=== PATIENT | male | born 1975 | race Caucasian/White ===

== ENCOUNTER 2017-06-26 18:43 | Emergency (ER) | payer BC, OTHER ==
[~2017-06-26] VITALS: Ht 172.7 cm; Wt 78.7 kg
[2017-06-26 18:54] VITALS: BP 148/93; PULSE 72; TEMP 37; O2SAT 98; Ht 172.7 cm; Wt 78.7 kg
[2017-06-26] MEDS ORDERED: LIDOCAINE HCL 1% 20 ML VIAL ONE (19:05)
[2017-06-26] MEDS ORDERED: CEFAZOLIN SOD 1000MG/55 ML D5W IV STA (19:06)
[2017-06-26] MEDS ORDERED: DIPHTHERIA/TETANUS/PERTUSSIS 0.5 ML SYR/VIAL IM. ONE (19:15)
[2017-06-26] MEDS ORDERED: CEPHALEXIN 500MG HOME PACK 1 EA BTL PO ONE (20:00)
[2017-06-26] MEDS ORDERED: CEPH500C PO (20:24)
--- NOTE | 2017-06-26 20:26 | EMERGENCY ROOM VISIT NOTE ---
ED Visit Note First contact with patient: 18:57 Chief Complaint: Left third Finger Laceration History of Present Illness: This 42-year-old male presents to the Emergency Department by private vehicle with his for evaluation of their left third finger laceration that occurred at approximately 2 PM today. Patient sustained the laceration while working with a planer machine, caught the tip of his finger in the belt. They report a moderate amount of bleeding initially, which has slowed but has not completely stopped. They deny any numbness or tingling into the distal extremity. They report decreased range of motion of the affected digit, notably the patient is unable to straighten his finger. They have tried no medications for the pain. Patient rates current discomfort as a 2/ 10. Patient denies any other injuries. Patient's Tetanus status is not currently up-to-date. Medications: No current medications Allergies: No known allergies PMH: No significant past medical or surgical history. SHx: Lives at home with his . Denies tobacco use. ROS: All pertinent positive and negative review of systems are appropriately documented in the History of Present Illness. Physical Exam: VITAL SIGNS - Vital signs and nursing notes were reviewed. GENERAL - pleasant and cooperative, in no acute distress. Communicates well with provider and answers questions appropriately. SKIN - There is a 2 cm long laceration noted on the dorsal aspect of the distal left third finger, just over the DIP joint. The edges gape apart and the wound appears deep. No foreign bodies appreciated. Upon further examination there is a full laceration of the extensor tendon and bony structures are visible. There is minimal active bleeding noted. MUSCULOSKELETAL - Laceration as described above. Normal flexor strength the affected digit, patient is unable to fully extend the distal end of the finger. NEUROLOGIC - No sensory defects of the left third finger appreciated utilizing light touch for evaluation. VASCULAR - Capillary refill was brisk. ED Course: Patient was seen and evaluated by myself. X-ray of the left third finger was done and reviewed by myself and radiology, no acute fractures noted. Costs and benefits of performing primary wound closure versus no repair were discussed with the patient who verbalizes understanding. Verbal consent was obtained prior to performing the procedure. 3 cc of 1% buffered lidocaine was used to perform a digital block of the left third digit. A finger tourniquet was applied. The wound was cleansed and prepped in the typical sterile fashion utilizing normal saline and Betadine. The wound was sterilely draped. Once proper anesthetization was established, the wound was further examined and confirmed a complete extensor tendon laceration. The wound was copiously irrigated with normal saline and Betadine. The wound was loosely closed using 3 simple, 5-0 nylon sutures with the wound edges being loosely approximated. Hemostasis was achieved. Patient tolerated the procedure well. No complications were met. The wound was cleansed and dressed with a Bacitracin dressing. A metal splint was applied to the finger for comfort. Patient received their Boostrix vaccination. Patient educated on worrisome symptoms for return visit to the Emergency Department. The patient was instructed to follow closely with orthopedic hand surgery for repair of his lacerated tendon, he verbalized understanding. Patient discharged to home in good condition. The patient was discussed with Dr. Shelton, who agrees with my assessment and plan. Current/Historical Medications Scheduled Cephalexin Monohydrate (Keflex), 500 MG PO QID Allergies Coded Allergies: No Known Allergies (Unverified , 06/26/17) Vital Signs Date Time Temp Pulse Resp B/P (MAP) Pulse Ox O2 Delivery O2 Flow Rate FiO2 06/26/17 18:54 37.0 72 18 148/93 98 Room Air Medications Administered Medications (Trade) Dose Ordered Sig/Thomas Route Start Time Stop Time Status Last Admin Dose Admin Diphtheria/ Pertussis/Tetanus Vacc (Adacel Inj) 0.5 ml ONCE ONCE IM. 06/26/17 19:15 06/26/17 19:16 DC 06/26/17 19:15 0.5 ML Cefazolin Sodium (Ancef 1000mg/55 ml D5W) 1,000 mg NOW STAT IV 06/26/17 19:06 06/26/17 19:08 DC 06/26/17 19:06 1,000 MG Cephalexin Monohydrate (Keflex 500MG Home Pack) 1 homepack NOW ONCE PO 06/26/17 20:00 06/26/17 20:01 DC 06/26/17 20:08 1 HOMEPACK Departure Information Impression Primary Impression: Laceration of left middle finger with tendon involvement Additional Impression: Extensor tendon laceration, finger, open wound Dispostion Home / Self-Care Condition GOOD Prescriptions Cephalexin Monohydrate (Keflex) 500 Mg Cap 500 MG PO QID for 4 Days, #16 CAP Prov: Lesley Carcamo, KEY ENTRY OPERATOR 06/26/17 Referrals No Doctor, Assigned (PCP) Roni Camilo MD Patient Instructions ED Laceration Hand, ED Laceration Tendon, Count Includes [facility] Additional Instructions Discharge Instructions: You have received 3 sutures on your left third finger. These sutures are temporary until you can be seen by orthopedics to have your tendon repaired. Please keep the finger splint on until you are seen by orthopedics. Check with your workman's comp instructions regarding what group you may go to for follow- up. Proper wound care is essential for adequate wound healing and infection prevention. You can shower and clean the wound with soap and water. Do not scour over the wound, pat dry with a towel. Do not submerse the wound (i.e. bathe or dish wash) until the sutures have been removed. You can use an antibiotic ointment with a dressing over the wound for the next 3-4 days. After this time you may leave the wound dry and open to the air. If crust develops over the wound you can use a Q-tip to apply a 1:1 peroxide:water solution to clean the wound. Look for signs of infection of the wound including: increased pain, swelling, foul discharge, streaking, or increased temperature. If any of these are noticed you should return to the Emergency Department for further assessment and treatment. As with any laceration you may have received nerve damage to the surrounding tissues. This damage may or may not be permanent. You should keep the area covered with sunscreen for the first 6 months to 1 year when at risk for exposure to help minimize scarring. You can also use scar reducing creams or Vitamin E oil to help minimize scarring. For pain control, you can use the following [id number] medicines (if >12 yo): - Regular strength (325mg/tab) Tylenol (acetaminophen) 2 tabs every 4-6 hours as needed. Do not exceed 10 tablets in a 24 hour period. Avoid taking more than 3000 mg of Tylenol per day. This includes any other sources of acetaminophen you may take on a regular basis. - Regular strength (200 mg/tab) Advil (ibuprofen) 1-2 tabs every 4-6 hours as needed. Do not exceed a dose of 2400 mg per day. Return to the emergency department if your symptoms worsen despite treatment course outlined above. Work Instructions Return To Work: 2 days Problem Qualifiers Additional Impression: Extensor tendon laceration, finger, open wound Encounter type: initial encounter Qualified Codes: S66.529A - Laceration of intrinsic muscle, fascia and tendon of unspecified finger at wrist and hand level, initial encounter; S61.209A - Unspecified open wound of unspecified finger without damage to nail, initial encounter
--- NOTE | 2017-06-26 20:31 | DIAGNOSTIC IMAGING REPORT ---
L FINGER(S) MIN 2 VIEWS ROUTINE CLINICAL HISTORY: 42 years-old Male presenting with left 3rd finger, distal laceration, eval open fx. TECHNIQUE: Frontal, oblique, and lateral views of the left third finger were obtained. COMPARISON: None. FINDINGS: A bandage overlies the distal interphalangeal joint of the left third finger. No radiographic evidence of soft tissue swelling or gross irregularity of the soft tissues. No subjacent osseous injury. No acute fracture or malalignment. IMPRESSION: No acute osseous injury of the left third finger. Electronically signed by: Matt Thompson M.D. 06/26/2017 8:30 PM Dictated Date/Time: 06/26/2017 8:29 PM
== END 2017-06-26 20:38 | disposition home or self-care (01) ==
LOC: C.EDB 18:44 → C.EDD 20:38
DX: S66.529A Laceration of intrinsic muscle, fascia and tendon of unspecified finger at wrist and hand level, initial encounter (principal); S61.209A Unspecified open wound of unspecified finger without damage to nail, initial encounter; W31.2XXA Contact with powered woodworking and forming machines, initial encounter